=== PATIENT | male | born 1970 | race Caucasian/White ===

== ENCOUNTER 2022-05-24 17:16 | Emergency (ER) | payer OTHER ==
[~2022-05-24] VITALS: Ht 177.8 cm; Wt 68.0 kg
--- NOTE | 2022-05-24 17:40 | NUR ---
Patient came in to the er c/o "Chest pain/palpitations/SOB/Sweats since Monday have hx WPS". On room air, breathing evenly and unlabored, connected to the monitor and pulse ox. kept comfortable, will continue to monitor accordingly.
[2022-05-24 18:07] LABS: BASOPHILS # (AUTO) 0.1 K/uL (0.0-0.2); BASOPHILS % (AUTO) 0.9 % (0.0-2.0); EOSINOPHILS % (AUTO) 4.6 % (0.0-6.0); HEMATOCRIT 49 % (39-51); HEMOGLOBIN 16.4 g/dL (13.5-17.5); LYMPHOCYTES # (AUTO) 2.3 K/uL (0.8-4.8); LYMPHOCYTES % (AUTO) 27.7 % (20.0-44.0); MEAN CORPUSCULAR HGB CONC 34 g/dl (31.0-36.0); MEAN CORPUSCULAR VOLUME 84 fL (80-96); MONOCYTES # (AUTO) 0.5 K/uL (0.1-1.30); MONOCYTES % (AUTO) 6.3 % (2.0-12.0); NEUTROPHILS % (AUTO) 60.5 % (43.0-81.0); PLATELET COUNT (AUTO) 253 K/uL (150-450); RED BLOOD CELL COUNT(AUTO) 5.82 MIL/uL (4.5-6.0); WHITE BLOOD COUNT (AUTO) 8.2 K/uL (4.3-11.0)
--- NOTE | 2022-05-24 18:39 | NUR ---
DR. DOAN SPEAKING WITH DR. RODAS
--- NOTE | 2022-05-24 18:48 | NUR ---
CALLED [facility] [phone] FAXING [phone] TO [place] AT [facility] [address] WILL PLACE ON LIST.
--- NOTE | 2022-05-24 18:58 | NUR ---
covid swab collected and sent to lab.
--- NOTE | 2022-05-24 19:09 | NUR ---
CALLED [facility] [phone] AT [facility] PER [place]KHAR.
--- NOTE | 2022-05-24 19:10 | NUR ---
CALLED [facility] [phone] [place] NO BEDS AVAILABLE WILL FAX FACE SHEET TO [phone]
--- NOTE | 2022-05-24 19:44 | NUR ---
[facility] [phone] GEORGINA YADAV
--- NOTE | 2022-05-24 19:49 | NUR ---
CALLED [facility] TRANSFER [phone] FOR [facility] OR [facility] LUDY OLVERA [facility] IS AT CAPACITY FOR TRANSFER.
--- NOTE | 2022-05-24 20:01 | NUR ---
[facility] TRANSF[facility] [phone] FOR [facility] PER [place] WILL CHECK.
[2022-05-24 20:12] LABS: ALANINE AMINOTRANSFERASE 23 U/L (12-78); ALBUMIN 4.2 g/dL (3.4-5.0); ALKALINE PHOSPHATASE 83 U/L (46-116); ASPARTATE AMINOTRANSFERASE 15 U/L (15-37); BILIRUBIN,DIRECT 0.2 mg/dL (0.0-0.2); BILIRUBIN,TOTAL 0.7 mg/dL (0.2-1.0); CALCIUM, SERUM 9.3 mg/dL (8.5-10.1); CARBON DIOXIDE 24 mmol/L (21-32); CHLORIDE 105 mmol/L (98-107); CREATININE 1.1 mg/dL (0.6-1.3); GLUCOSE 101 mg/dL (74-106); POTASSIUM 3.6 mmol/L (3.5-5.1); SODIUM SERUM 140 mmol/L (136-145); TOTAL PROTEIN, SERUM 7.4 g/dL (6.4-8.2); UREA NITROGEN, BLOOD 16 mg/dL (7-18)
--- NOTE | 2022-05-24 20:39 | NUR ---
Patient does not wish to proceed with medical care recommended by Dr. Roche. Patient given information related to possible complications, up to and including , which could occur as a result of leaving the hospital at this time. Patient verbalizes understanding of risks involved due to leaving against medical advice. Patient has signed AMA form.IV removed. Catheter intact and site benign. Pressure and 4x4 applied to site. No bleeding noted.
[2022-05-24 21:26] VITALS: BP 132/82
== END 2022-05-24 20:40 | disposition left against medical advice (07) ==
LOC: ER 17:29
DX: R07.9 Chest pain, unspecified (principal); I45.6 Pre-excitation syndrome; Z20.822 Contact with and (suspected) exposure to COVID-19; Z53.29 Procedure and treatment not carried out because of patient's decision for other reasons
CPT/HCPCS: 99285; 71045; 87426; 93005; 85025; 80048; 80076; 36415; 84484; C9803